=== PATIENT | male | born 1940 | race Caucasian/White ===

== ENCOUNTER 2022-03-03 19:30 | Inpatient (IN) | payer MEDICARE, BC ==
[~2022-03-03] VITALS: Ht 177.8 cm; Wt 73.0 kg
--- NOTE | 2022-03-03 19:39 | NUR ---
Dr Darling at bedside, MSE in progress.
[2022-03-03] MEDS ORDERED: IV NORMAL SALINE 500 ML BAG IV ONE (19:45)
[2022-03-03] MEDS ORDERED: ONDANSETRON 4 MG/2 ML VIAL IV ONE (19:45)
[2022-03-03 19:55] LABS: HEMATOCRIT 39.5 % (36.7-47.1); MEAN CORPUSCULAR HEMOGLOBIN 31.9 uug (23.8-33.4); MEAN CORPUSCULAR VOLUME 92.6 fL (73.0-96.2); PLATELET COUNT (AUTO) 204 K/uL (152-348)
[2022-03-03] MEDS ORDERED: ONDANSETRON 4 MG/2 ML VIAL ONE (20:11)
[2022-03-03 20:12] LABS: ALANINE AMINOTRANSFERASE 20 U/L (16-63); ALKALINE PHOSPHATASE 83 U/L (50-136); ASPARTATE AMINOTRANSFERASE 19 U/L (15-37); BILIRUBIN,DIRECT 0.1 mg/dL (0.0-0.2); BILIRUBIN,TOTAL 0.4 mg/dL (0.2-1.0); CARBON DIOXIDE 29 mmol/L (21-32); CHLORIDE 98 mmol/L (98-107); GLUCOSE 119 mg/dL (74-106); POTASSIUM 3.9 mmol/L (3.5-5.1); TOTAL PROTEIN, SERUM 6.5 g/dL (6.4-8.2); UREA NITROGEN, BLOOD 18 mg/dL (7-18)
[2022-03-03] MEDS ORDERED: GABA-532 PO (20:18)
[2022-03-03] MEDS ORDERED: CARB200T PO (20:18)
[2022-03-03] MEDS ORDERED: CHOL200059 PO (20:18)
[2022-03-03] MEDS ORDERED: ASPI-1420 PO (20:18)
[2022-03-03] MEDS ORDERED: EZET10TA15 PO (20:18)
[2022-03-03] MEDS ORDERED: ATOR40TA PO (20:18)
[2022-03-03] MEDS ORDERED: TADA5TAB2 PO (20:18)
--- NOTE | 2022-03-03 21:40 | NUR ---
Called [facility] for panel call.
[2022-03-03] MEDS ORDERED: IV NS 1000 ML 1,000 ML IV PRN (22:15)
[2022-03-03] MEDS ORDERED: ACETAMINOPHEN 325 MG TABLET PO PRN (22:15)
[2022-03-03] MEDS ORDERED: ONDANSETRON 4 MG/2 ML VIAL IV PRN (22:15)
[2022-03-04 01:47] LABS: *BILIRUBIN,URIN NEGATIVE (NEGATIVE); *BLOOD, URINE NEGATIVE (NEGATIVE); *CLARITY,URINE CLEAR (CLEAR); *COLOR,URINE YELLOW (YELLOW); *KETONES,URINE TRACE (NEGATIVE); LEUKOCYTE ESTERASE ,URINE NEGATIVE (NEGATIVE); NITRITE, URINE NEGATIVE (NEGATIVE); UGLUCOSE NEGATIVE (NEGATIVE)
--- NOTE | 2022-03-04 01:52 | NUR ---
Report given to Sanjuanita STAFFORD.
[2022-03-04 02:10] LABS: BACTERIA,URINE NONE SEEN /HPF (NONE SEEN); COARSE GRANULAR CASTS,URINE 0-3 /LPF; RBC,URINE 0-3 /HPF (0-3); SQUAMOUS EPITHELIAL CELL,UR NONE SEEN /HPF (NONE SEEN); WBC,URINE 0-3 /HPF (0-3)
[2022-03-04 03:28] VITALS: BP 125/67
--- NOTE | 2022-03-04 05:43 | NUR ---
Pt admitted to Tele, SR on monitor. No distress noted. Denies dizziness or SOB. Denies SANTIZO/N/V. Able to make needs known. IV site intact. Skin intact. Safety and comfort provided to patient. Will endorse to day shift.
[2022-03-04 06:55] LABS: HEMATOCRIT 39.7 % (36.7-47.1); MEAN CORPUSCULAR HEMOGLOBIN 31.8 uug (23.8-33.4); MEAN CORPUSCULAR VOLUME 92.3 fL (73.0-96.2); PLATELET COUNT (AUTO) 185 K/uL (152-348)
[2022-03-04] MEDS ORDERED: PANTOPRAZOLE SODIUM 40 MG TABLET.DR PO SCH (07:00)
[2022-03-04 07:06] LABS: CREATININE 0.9 mg/dL (0.6-1.3); POTASSIUM 3.8 mmol/L (3.5-5.1)
[2022-03-04 07:24] LABS: BILIRUBIN,TOTAL 0.3 mg/dL (0.2-1.0); MAGNESIUM 2.3 mg/dL (1.8-2.4); TOTAL PROTEIN, SERUM 6.1 g/dL (6.4-8.2)
[2022-03-04] MEDS: CARBAMAZEPINE 200 MG TABLET PO SCH ×3 (08:19→17:30)
[2022-03-04] MEDS: GABAPENTIN 100 MG CAPSULE PO SCH ×3 (08:19→17:30)
[2022-03-04 08:31] LABS: THYROID STIMULATING HORMONE 1.006 mIU/mL (0.358-3.740)
[2022-03-04] MEDS ORDERED: ASPIRIN EC 81 MG TABLET.DR PO SCH (09:00)
[2022-03-04] MEDS ORDERED: EZETIMIBE 10 MG TABLET PO SCH (09:00)
--- NOTE | 2022-03-04 09:00 | NUR ---
Patient is aao x4, able to make needs known. Seen by [employer] Jareth Herrera, with recommendations for Cardio consult and echo. patient denies any further syncope, no dizziness. Telemetry is SR with 1st dregree AV block. All needs attended, IV fluids NS at 70cc/hr infusing to IV on left AC. Call light within reach.
--- NOTE | 2022-03-04 12:00 | NUR ---
Seen by PT and cleared to ambulate ad cande, gait is steady.
[2022-03-04 12:04] VITALS: BP 122/69
--- NOTE | 2022-03-04 15:00 | NUR ---
Echo and CT of head completed.
[2022-03-04 16:13] VITALS: BP 132/73
--- NOTE | 2022-03-04 17:00 | NUR ---
Patient seen by mortgage loan closer and echo completed. Per [employer] patient is clear to be discharged. Jareth Herrera NP made aware.
--- NOTE | 2022-03-04 19:50 | NUR ---
Patient alert X4.On Ra.No s/s of distress. at bedside. Patient wants to go AMA .Per patient he wants to go home now. Stated "Doctor came and ok for him to be discharged and couldn't wait any longer. Anastasiia Herrera notified. Patient signed AMA. Dc'd IV line on right UA.Patient accompanied by .
[2022-03-04] MEDS ORDERED: ATORVASTATIN 40 MG TABLET PO SCH (21:00)
[2022-03-04] MEDS ORDERED: DOCUSATE SODIUM 250 MG CAPSULE PO SCH (21:00)
== END 2022-03-04 19:50 | disposition left against medical advice (07) | DRG 74 ==
LOC: ER 19:41 → TELE3 03-04 00:01
PROVIDERS: ADMIT Nurse Practitioner Acute Care; ATTEND Nurse Practitioner Acute Care
DX: G90.8 Other disorders of autonomic nervous system (principal); E78.5 Hyperlipidemia, unspecified; Z85.46 Personal history of malignant neoplasm of prostate; Z90.79 Acquired absence of other genital organ(s); I25.10 Atherosclerotic heart disease of native coronary artery without angina pectoris; R93.1 Abnormal findings on diagnostic imaging of heart and coronary circulation; Z20.822 Contact with and (suspected) exposure to COVID-19; I95.89 Other hypotension; Z82.49 Family history of ischemic heart disease and other diseases of the circulatory system; T46.7X5A Adverse effect of peripheral vasodilators, initial encounter; Y92.009 Unspecified place in unspecified non-institutional (private) residence as the place of occurrence of the external cause
CPT/HCPCS: 36415; 70450; 71045; 83735; 84100; 84443; 84484; 85025; 85730; 93005; 93307; 93880; 97161; G0378; J2405; J7040